=== PATIENT | male | born 1975 | race Caucasian/White ===

== ENCOUNTER 2018-07-13 09:43 | Emergency (ER) | payer OTHER ==
[2018-07-13 09:50] VITALS: BP 152/106
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
[2018-07-13] MEDS ORDERED: HYDROCODONE/APAP 5/325 TAB PO ONE (10:12)
== END 2018-07-13 10:40 | disposition home or self-care (01) ==
DX: T24.211A Burn of second degree of right thigh, initial encounter (principal); T24.212A Burn of second degree of left thigh, initial encounter; T31.0 Burns involving less than 10% of body surface; X16.XXXA Contact with hot heating appliances, radiators and pipes, initial encounter; Y99.0 Civilian activity done for income or pay; F17.200 Nicotine dependence, unspecified, uncomplicated